=== PATIENT | female | born 1940 | race Two or more races ===

== ENCOUNTER 2023-07-25 09:17 | Day surgery (SDC) | payer OTHER ==
[~2023-07-25] VITALS: Ht 152.4 cm; Wt 56.2 kg
[~2023-07-25 09:17] MED LIST: ATORVASTATIN CA80 MG PO; BENICAR20 MG PO; PLAVIX75 MG PO; TENORMIN50 M1 PO
== END 2023-07-25 22:35 | disposition home or self-care (01) ==
LOC: CIR.AMB 09:17
PROVIDERS: ATTEND Colon & Rectal Surgery
DX: K64.2 Third degree hemorrhoids (principal); K92.1 Melena; Z20.822 Contact with and (suspected) exposure to COVID-19; I10 Essential (primary) hypertension; E78.5 Hyperlipidemia, unspecified; I99.9 Unspecified disorder of circulatory system